=== PATIENT | male | born 1960 | race Caucasian/White ===

== ENCOUNTER 2017-04-16 13:25 | Emergency (ER) | payer OTHER ==
[~2017-04-16] VITALS: Ht 182.9 cm; Wt 98.5 kg
[2017-04-16 13:39] VITALS: BP 191/125; PULSE 130; RESP 16; TEMP 98.8; O2SAT 98
[2017-04-16] MEDS ORDERED: CIPROFLOXACIN 500 MG TAB PO ONE (14:45)
[2017-04-16] MEDS ORDERED: metroNIDAZOLE 500 MG TAB PO ONE (14:45)
[2017-04-16 15:01] VITALS: BP 225/109; PULSE 77; RESP 16; O2SAT 99
[2017-04-16] MEDS ORDERED: CIPR-9 PO (15:13)
[2017-04-16] MEDS ORDERED: METR-1 PO (15:13)
--- NOTE | 2017-04-16 15:13 | PD ---
HPI Chief Complaint: GI Complaint Time Seen by Provider: 13:54 Travel History International Travel<30 days: No Contact w/Intl Traveler<30days: No Traveled to known affect area: No History of Present Illness HPI Patient is a 56-year-old male who comes in because he has a sex toy stuck in his anus. He says it has been there for 2 days. He denies any pain. He denies any abdominal pain. He denies nausea or vomiting. He says he has no complaints other than he cannot remove the toilet. [facility] Past Medical History Cardiac Catheterization: Yes (with stent placement) Diminished Hearing: No Hypertension: Yes Tetanus Vaccination: Unknown Influenza Vaccination: No ?: Not Social History Alcohol Use: Yes (daily) Tobacco Use: No Substance Use: No Allergies-Medications (Allergen,Severity, Reaction): Coded Allergies: No Known Allergies (Unverified , 04/16/17) Reported Meds & Prescriptions Reported Meds & Active Scripts Active Flagyl (Metronidazole) 500 Mg Tab 500 Mg PO TID 5 Days Cipro (Ciprofloxacin HCl) 500 Mg Tab 500 Mg PO BID 5 Days Review of Systems General / Constitutional: No: Fever, Chills HENT: No: Headaches, Lightheadedness Cardiovascular: No: Chest Pain or Discomfort Respiratory: No: Shortness of Breath Gastrointestinal: No: Nausea, Vomiting, Abdominal Pain Musculoskeletal: No: Pain Skin: No Rash, No Change in Pigmentation Neurologic: No: Weakness, Dizziness Physical Exam Narrative GENERAL: Awake and alert, in no acute distress. SKIN: Focused skin assessment warm/dry. HEAD: Atraumatic. Normocephalic. EYES: Pupils equal and round. No scleral icterus. CARDIOVASCULAR: Regular rate and rhythm. No murmur appreciated. RESPIRATORY: No accessory muscle use. Clear to auscultation. Breath sounds equal bilaterally. GASTROINTESTINAL: Abdomen soft, non-tender, nondistended. Rectal: Small hemorrhoid, toy palpable. MUSCULOSKELETAL: No obvious deformities. No clubbing. No cyanosis. No edema. NEUROLOGICAL: Awake and alert. No obvious cranial nerve deficits. Motor grossly within normal limits. Normal speech. Data Data Last Documented VS Vital Signs Date Time Temp Pulse Resp B/P (MAP) Pulse Ox O2 Delivery O2 Flow Rate FiO2 04/16/17 15:23 04/16/17 15:01 77 16 99 Room Air 04/16/17 13:39 98.8 Orders Orders Ciprofloxacin (Cipro) (04/16/17 14:45) Metronidazole (Flagyl) (04/16/17 14:45) Ed Discharge Order (04/16/17 15:13) MDM Medical Decision Making Medical Screen Exam Complete: Yes Emergency Medical Condition: Yes Differential Diagnosis Foreign body versus hemorrhoid versus constipation Narrative Course Patient is a 56-year-old male who comes in because he has a foreign body stuck in his rectum. Foreign body was successfully removed. Patient was given a dose of Cipro and Flagyl. He'll be discharged with Cipro and Flagyl. Head and advised to avoid any anal intercourse or putting anything in his anus as the mucosa needs time to heal. Advised to follow-up with a primary doctor. Advised to return to the ED as needed for any worsening symptoms. Diagnosis Primary Impression: Foreign body anus/rectum Qualified Codes: T18.5XXA - Foreign body in anus and rectum, initial encounter Patient Instructions: General Instructions, Rectal Foreign Body (ED) Additional Instructions: Avoid any anal intercourse or putting anything in your anus for the next 2 weeks to give the mucosa time to heal. Take all the antibiotics. Do not drink on the antibiotics as she will become violently ill. Return To the ED as needed for any worsening symptoms. Scripts Metronidazole (Flagyl) 500 Mg Tab 500 MG PO TID for Infection for 5 Days, TAB 0 Refills Prov: Queenie Rogers MD 04/16/17 Ciprofloxacin (Cipro) 500 Mg Tab 500 MG PO BID for Infection for 5 Days, #10 TAB 0 Refills Prov: Queenie Rogers MD 04/16/17 Disposition: 01 DISCHARGE HOME Condition: Stable Queenie Rogers MD Apr 16, 2017 15:13
== END 2017-04-16 15:32 | disposition home or self-care (01) ==
LOC: PHED 13:25
DX: T18.5XXA Foreign body in anus and rectum, initial encounter (principal); I10 Essential (primary) hypertension; Z95.5 Presence of coronary angioplasty implant and graft; Z72.89 Other problems related to lifestyle
CPT/HCPCS: 99284